=== PATIENT | female | born 1985 | race Caucasian/White ===

== ENCOUNTER 2021-04-18 10:55 | Emergency (ER) | payer MEDICAID ==
[~2021-04-18] VITALS: Ht 162.6 cm; Wt 110.2 kg
[2021-04-18 11:14] VITALS: BP 141/52
--- NOTE | 2021-04-18 11:17 | NUR ---
pt returned to lobby at this time
--- NOTE | 2021-04-18 11:20 | NUR ---
36 y/o female, c/o bump under left arm, pain radiates down to hand for 2 weeks. pt denies any pus, blood or drainage from site. denies n/v/d. denies dysuria, hematuria, urinary retention or frequency. denies syncope, loc or head/neck injury. skin is pink/warm/dry. aa&ox4 with even and steady gait. lungs clear bl. hr even and regular, cap refill <3, no edema present at this time. pt denies any fever, cp, sob or cough at this time. patient states pain is 7/10 at this time. ermd made aware of pt status. pmh: denies nka med: denies
[2021-04-18] MEDS ORDERED: NAPR-54 PO (12:08)
[2021-04-18] MEDS ORDERED: CEPH-588 PO (12:08)
[2021-04-18 12:54] VITALS: BP 132/64
--- NOTE | 2021-04-18 12:55 | NUR ---
Patient discharged with v/s stable. Written and verbal after care instructions given FOR CELLULITIS and explained. Patient alert, oriented and verbalized understanding of instructions. Ambulatory with steady gait. All questions addressed prior to discharge. ID band removed. Patient advised to follow up with PMD. Rx of KEFLEX, AND NAPROXEN given. Patient educated on indication of medication including possible reaction and side effects. Opportunity to ask questions provided and answered.
== END 2021-04-18 12:55 | disposition home or self-care (01) ==
LOC: MED 10:55
DX: L03.112 Cellulitis of left axilla (principal); Z79.899 Other long term (current) drug therapy
CPT/HCPCS: 99283